=== PATIENT | female | born 1995 | race Caucasian/White ===

== ENCOUNTER 2018-08-19 12:56 | Emergency (ER) | payer OTHER ==
[~2018-08-19] VITALS: Ht 162.6 cm; Wt 84.0 kg
[2018-08-19 13:04] VITALS: BP 105/35
== END 2018-08-19 13:15 | disposition left against medical advice (07) ==
LOC: ER 12:56
DX: O26.893 Other specified pregnancy related conditions, third trimester (principal); R10.10 Upper abdominal pain, unspecified; R07.81 Pleurodynia; M54.89 Other dorsalgia; Z3A.32 32 weeks gestation of pregnancy; Z53.21 Procedure and treatment not carried out due to patient leaving prior to being seen by health care provider

== ENCOUNTER 2018-11-01 04:23 | Emergency (ER) | payer OTHER ==
[~2018-11-01] VITALS: Ht 162.6 cm; Wt 79.4 kg
[2018-11-01] MEDS ORDERED: IV NORMAL SALINE 1,000ML 1,000 ML IV SCH (04:40)
--- NOTE | 2018-11-01 04:43 | PHYS DOC ---
Past History Past Medical History: No Pertinent History (ABDULAZIZ KELLY Jr. DO) Past Surgical History: (ABDULAZIZ KELLY Jr. DO) Alcohol Use: None Drug Use: None (ABDULAZIZ KELLY Jr., DO) Adult General Chief Complaint Chief Complaint: ABDOMINAL PAIN [facility] HPI Patient is a 22-year-old female who presents with complaint of right upper quadrant abdominal pain that started last night at about 11 PM. Patient states that she had eaten some fettuccine [place] [employer] last night. Patient states that she does have a history of gallstones and has had a gallbladder attack in the past. She states that she is scheduled to see a surgeon next week to be scheduled for cholecystectomy. She rates her pain to be an 8 out of 10 right now. She does admit to nausea but is had no vomiting. (ABDULAZIZ KELLY Jr. DO) Review of Systems Review of Systems Constitutional: Denies fever or chills [] Respiratory: Denies cough or shortness of breath [] Cardiovascular: No additional information not addressed in [facility] [] GI: Complains of right upper quadrant abdominal pain with nausea. Denies vomiting or diarrhea [] Musculoskeletal: Admits to right-sided back pain [] Integument: Denies rash or skin lesions [] Neurologic: Denies headache, focal weakness or sensory changes [] All other systems were reviewed and found to be within normal limits, except as documented in this note. (ABDULAZIZ KELLY Jr., DO) Allergies Allergies Allergies Coded Allergies Type Severity Reaction Last Updated Verified No Known Drug Allergies 08/19/18 No (ABDULAZIZ KELLY Jr., DO) Physical Exam Physical Exam Constitutional: Well developed, well nourished, no acute distress, non-toxic appearance. [] HENT: Normocephalic, atraumatic, bilateral external ears normal, oropharynx moist, no oral exudates, nose normal. [] Eyes: PERRLA, EOMI, conjunctiva normal, no discharge. [] Neck: Normal range of motion, no tenderness, supple, no stridor. [] Cardiovascular:Heart rate regular rhythm, no murmur [] Lungs & Thorax: Bilateral breath sounds clear to auscultation [] Abdomen: Bowel sounds normal, soft, with right upper quadrant tenderness. [] Skin: Warm, dry, no erythema, no rash. [] Extremities: No tenderness, no cyanosis, no clubbing, ROM intact, no edema. [] Neurologic: Alert and oriented X 3, no focal deficits noted. [] (ABDULAZIZ KELLY Jr. DO) EKG EKG [] (ABDULAZIZ KELLY Jr. DO) Radiology/Procedures Radiology/Procedures [] (ABDULAZIZ KELLY Jr. DO) Radiology/Procedures TECHNIQUE: Limited ultrasound examination of the right upper quadrant of the abdomen was performed FINDINGS: Liver: The liver measures 16.3 cm in length in the right mid clavicular line. Hepatic echogenicity is normal and the margin is smooth. There is no focal abnormality of the liver. Portal and hepatic venous flow is confirmed with normal waveforms. Gallbladder/Biliary: Gallstones are seen within the gallbladder, particularly at the gallbladder neck.. Mild gallbladder wall thickening is seen measuring up to 4 mm. No pericholecystic fluid is seen.. There is no pain with direct transducer pressure over the gallbladder.The common bile duct measures 10 mm. The right kidney measures 10.8 cm in bipolar length. No focal renal lesion. Mild renal cortical thinning. No hydronephrosis. There is no free fluid in the subhepatic space. IMPRESSION: Cholelithiasis with a gallstone impacted at the gallbladder neck without evidence for movement on the decubitus images. Associated gallbladder wall thickening is seen however sonographic Beaver sign is negative and there is no pericholecystic fluid. Although these findings can be seen with acute cholecystitis, gallbladder wall thickening can also be seen with numerous other causes. (FELICIA MOODY DO) Course & Med Decision Making Course & Med Decision Making Pertinent Labs and Imaging studies reviewed. (See chart for details) [] (ABDULAZIZ KELLY Jr. DO) Course & Med Decision Making Received patient at 6 AM. Patient feeling much better with the pain medicine. Discussed the imaging findings along with the laboratory findings with her. She is feeling well and has close follow-up with her [employer] tomorrow along with consultation with the general surgeon later in the week. At this time she would like to go home. Discussed risks and benefits of this plan versus risks and benefits of transfer to [place] given the ultrasound findings. At 7:40 patient rethought the decision, initially made on concerns of her new child and [id number], and elected for admission at [facility]. Call was placed to the hospitalist. Medical decision making: Patient with cholelithiasis and what appears at this point to be an impacted gallstone on ultrasound, however given the normal white count, lack of sonographic Beaver's, and the improved pain there is no evidence of acute cholecystitis, nor pancreatitis, nor ascending cholangitis. No evidence of other significant intra-abdominal pathology. (FELICIA MOODY DO) Dragon Disclaimer Dragon Disclaimer This electronic medical record was generated, in whole or in part, using a voice recognition dictation system. (ABDULAZIZ KELLY Jr. DO) Departure Departure: Impression: Primary Impression: Cholelithiasis Disposition: 05 TRANSFER OTHER Condition: IMPROVED Referrals: PCP,UNKNOWN (PCP) Patient Instructions: Cholelithiasis Additional Instructions: Follow-up with your [employer] tomorrow morning as scheduled. Avoid fatty foods because they may trigger a gallbladder attack. Return to the ER if worsening pain or any other concerns. Scripts Hyoscyamine Sulfate (LEVSIN) 0.125 Mg Tablet 0.125 MG PO QID for abdominal pain/cramping, #30 TAB Prov: FELICIA MOODY DO 11/01/18 Problem Qualifiers Primary Impression: Cholelithiasis Cholelithiasis location: gallbladder Cholecystitis presence: without cholecystitis Biliary obstruction: without biliary obstruction Qualified Codes: K80.20 - Calculus of gallbladder without cholecystitis without obstruction ABDULAZIZ KELLY Jr. DO Nov 01, 2018 04:43 FELICIA MOODY DO Nov 01, 2018 07:11
[2018-11-01] MEDS ORDERED: ONDANSETRON PF 4 MG/2 ML VIAL. IV ONE (04:45)
[2018-11-01] MEDS ORDERED: HYDROmorphone PF 1 MG/ML DISP.SYRIN IV/SQ PRN (04:45)
[2018-11-01 05:07] LABS: BASO % 1 % (0-3); EOS # 0.1 x10^3/uL (0.0-0.7); EOS % 2 % (0-3); HEMATOCRIT 35.6 % (36.0-47.0); HEMOGLOBIN 11.5 g/dL (12.0-15.5); LYMPH # 2.3 x10^3/uL (1.0-4.8); LYMPH % 37 % (24-48); MEAN CORPUSCULAR HEMOGLOBIN 27 pg (25-35); MEAN CORPUSCULAR HGB CONC 32 g/dL (31-37); MEAN CORPUSCULAR VOLUME 83 fL (79-100); MONO # 0.4 x10^3/uL (0.0-1.1); MONO % 7 % (0-9); NEUT # 3.3 x10^3uL (1.8-7.7); NEUT % 53 % (31-73); PLATELET COUNT 217 x10^3/uL (140-400); RED BLOOD COUNT 4.27 x10^6/uL (3.50-5.40); RED CELL DISTRIBUTION WIDTH 13.8 % (11.5-14.5); WHITE BLOOD COUNT 6.2 x10^3/uL (4.0-11.0)
[2018-11-01 05:12] LABS: BACTERIA,URINE 0 /HPF (0-FEW); BILIRUBIN,URINE NEG (NEG); CLARITY,URINE CLEAR; COLOR,URINE YELLOW; GLUCOSE,URINE NEG (NEG); NITRITE,URINE NEG (NEG); RBC,URINE 0 /HPF (0-2); UROBILINOGEN,URINE 0.2 mg/dL (0.2 mg/dL); WBC,URINE OCC /HPF (0-4)
[2018-11-01 05:13] LABS: SQUAMOUS EPITHELIAL CELL,UR FEW /LPF
[2018-11-01 05:19] LABS: ALBUMIN 3.1 g/dL (3.4-5.0); ALBUMIN/GLOBULIN RATIO 0.8 (1.0-1.7); CREATININE 1.2 mg/dL (0.6-1.0); GFR 56.2; POTASSIUM 3.7 mmol/L (3.5-5.1); TOTAL BILIRUBIN 0.2 mg/dL (0.2-1.0); TOTAL PROTEIN 6.9 g/dL (6.4-8.2)
[2018-11-01] MEDS ORDERED: HYDROmorphone PF 2 MG/ML VIAL IV/SQ PRN (05:37)
[2018-11-01 06:33] VITALS: BP 111/65
--- NOTE | 2018-11-01 06:50 | RAD ---
CLINICAL HISTORY: Right upper quadrant pain, known gallstones, 1 month post COMPARISON: None available. TECHNIQUE: Limited ultrasound examination of the right upper quadrant of the abdomen was performed FINDINGS: Liver: The liver measures 16.3 cm in length in the right mid clavicular line. Hepatic echogenicity is normal and the margin is smooth. There is no focal abnormality of the liver. Portal and hepatic venous flow is confirmed with normal waveforms. Gallbladder/Biliary: Gallstones are seen within the gallbladder, particularly at the gallbladder neck.. Mild gallbladder wall thickening is seen measuring up to 4 mm. No pericholecystic fluid is seen.. There is no pain with direct transducer pressure over the gallbladder.The common bile duct measures 10 mm. The right kidney measures 10.8 cm in bipolar length. No focal renal lesion. Mild renal cortical thinning. No hydronephrosis. There is no free fluid in the subhepatic space. IMPRESSION: Cholelithiasis with a gallstone impacted at the gallbladder neck without evidence for movement on the decubitus images. Associated gallbladder wall thickening is seen however sonographic Beaver sign is negative and there is no pericholecystic fluid. Although these findings can be seen with acute cholecystitis, gallbladder wall thickening can also be seen with numerous other causes. Electronically signed by: Inocente Chand MD (11/01/2018 6:47 AM) [facility]
[2018-11-01] MEDS ORDERED: HYOS0.1264 PO (07:11)
== END 2018-11-01 08:52 | disposition short-term general hospital (02) ==
LOC: ER 04:23
DX: K80.20 Calculus of gallbladder without cholecystitis without obstruction (principal); Z98.890 Other specified postprocedural states
CPT/HCPCS: 36415; 76705; 80053; 81001; 81025; 83690; 85025; 96374; 96375; 99285; J1170; J2405; J7030

== ENCOUNTER 2020-01-16 18:03 | Emergency (ER) | payer OTHER ==
[~2020-01-16] VITALS: Ht 160 cm; Wt 86.0 kg
[~2020-01-16 18:03] MED LIST: HYOS0.1264 PO
--- NOTE | 2020-01-16 18:31 | PHYS DOC ---
Past History Past Medical History: Gallstones Past Surgical History: Alcohol Use: None Drug Use: None General Adult EDM: Chief Complaint: VAGINAL BLEEDING HPI: HPI: Patient is a 24-year-old who presents at approximately 9 weeks gestational age based upon last menstrual cycle. Patient indicates that she had recently taken a test that was positive. She states that she noticed some bleeding earlier this afternoon when she went to wipe after going to the bathroom. She states that she has never had bleeding before with her other pregnancies. She denies any abdominal cramping but does admit to some lower back discomfort. [] Review of Systems: Review of Systems: Constitutional: Denies fever or chills Respiratory: Denies cough or shortness of breath Cardiovascular: Denies chest pain or edema GI: Denies abdominal pain, nausea, vomiting or diarrhea : Positive vaginal bleeding Musculoskeletal: Positive lower back pain Integument: Denies rash Neurologic: Denies headache, focal weakness or sensory changes Heart Score: Risk Factors: Risk Factors: DM, Current or recent (<one month) smoker, HTN, HLP, family history of CAD, obesity. Risk Scores: Score 0 - 3: 2.5% MACE over next 6 weeks - Discharge Home Score 4 - 6: 20.3% MACE over next 6 weeks - Admit for Clinical Observation Score 7 - 10: 72.7% MACE over next 6 weeks - Early Invasive Strategies Allergies: Allergies: Allergies Coded Allergies Type Severity Reaction Last Updated Verified No Known Drug Allergies 08/19/18 No Physical Exam: PE: Constitutional: Well developed, well nourished, no acute distress, non-toxic appearance. [] Neck: Normal range of motion, no tenderness, supple, no stridor. [] Cardiovascular: Regular rate and rhythm [] Lungs & Thorax: Bilateral breath sounds clear to auscultation [] Abdomen: Bowel sounds normal, soft, no tenderness. [] Skin: Warm, dry, no erythema, no rash. [] Extremities: No tenderness, no cyanosis, no clubbing, ROM intact, no edema. [] Neurologic: Alert and oriented X 3, no focal deficits noted. [] EKG: EKG: [] Radiology/Procedures: Radiology/Procedures: [] Impressions: PROCEDURE: OB <14 WKS W/TV Obstetric ultrasound less than 14 weeks with transvaginal: Reason for examination: with vaginal bleeding. Transabdominal and transvaginal ultrasound examination of the pelvis was performed. Transabdominally, the uterus appears be normal in size. There is an intrauterine gestational sac with a pole present measuring 2.1 cm in greatest dimension consistent with a gestational age of 8 weeks 5 days. Cardiac activity seen with a cardiac rate of 175 bpm. The ovaries are not seen transabdominally. Transvaginally, no abnormality is seen at the cervix which is closed. Intrauterine gestation is present with pole and yolk sac identified. Gestational sac measures 4.3 x 4.1 x 2.5 cm in greatest dimension and has a normal contour. pole measures 2.11 cm in greatest dimension consistent with gestational age of 8 weeks 5 days. There does appear to be a small subchorionic hemorrhage measuring approximately 1.1 cm in length. The right ovary measures 3.3 x 2.0 x 1.8 cm in greatest dimension and shows normal vascular flow and no mass. The left ovary is not identified. No free fluid is present in the pelvis. IMPRESSION: Single viable intrauterine gestation with mean gestational age estimated at 8 weeks 5 days with estimated date of confinement of 08/23/2020. Small subchorionic bleed measuring 1.1 cm in length. Electronically signed by: Cristel Land MD (01/16/2020 8:26 PM) [id number] Course & Med Decision Making: Course & Med Decision Making Pertinent Labs and Imaging studies reviewed. (See chart for details) [] [employer] Disclaimer: Dragon Disclaimer: This electronic medical record was generated, in whole or in part, using a voice recognition dictation system. Departure Departure: Impression: Primary Impression: Vaginal bleeding affecting early Additional Impression: Subchorionic hematoma in first trimester Qualified Codes: O41.8X10 - Other specified disorders of amniotic fluid and membranes, first trimester, not applicable or unspecified; O46.8X1 - Other antepartum hemorrhage, first trimester Disposition: 01 HOME/RESIDENCE PRIOR TO ADM Condition: STABLE Referrals: PCP,NO (PCP) Patient Instructions: Subchorionic Hematoma, Vaginal Bleeding During , First Trimester Additional Instructions: Call to schedule follow up appointment with OB in the next week. Justification of Admission: Justification of Admission: Justification of Admission Dx: Comment: (Not applicable) ABDULAZIZ KELLY Jr. DO Jan 16, 2020 18:31
[2020-01-16 19:03] LABS: BASO % 1 % (0-3); EOS # 0.1 x10^3/uL (0.0-0.7); EOS % 1 % (0-3); HEMATOCRIT 36.3 % (36.0-47.0); HEMOGLOBIN 12.2 g/dL (12.0-15.5); LYMPH % 28 % (24-48); MEAN CORPUSCULAR HEMOGLOBIN 29 pg (25-35); MEAN CORPUSCULAR HGB CONC 34 g/dL (31-37); MEAN CORPUSCULAR VOLUME 86 fL (79-100); MONO # 0.4 x10^3/uL (0.0-1.1); MONO % 6 % (0-9); NEUT # 4.7 x10^3uL (1.8-7.7); NEUT % 64 % (31-73); PLATELET COUNT 232 x10^3/uL (140-400); RED BLOOD COUNT 4.23 x10^6/uL (3.50-5.40); RED CELL DISTRIBUTION WIDTH 13.7 % (11.5-14.5); WHITE BLOOD COUNT 7.2 x10^3/uL (4.0-11.0)
[2020-01-16 19:12] LABS: CREATININE 0.9 mg/dL (0.6-1.0); GFR 76.9; POTASSIUM 3.5 mmol/L (3.5-5.1)
[2020-01-16 19:20] LABS: ALBUMIN 3.2 g/dL (3.4-5.0); ALBUMIN/GLOBULIN RATIO 0.8 (1.0-1.7); TOTAL BILIRUBIN 0.2 mg/dL (0.2-1.0); TOTAL PROTEIN 7.1 g/dL (6.4-8.2)
[2020-01-16 19:30] VITALS: BP 119/67
--- NOTE | 2020-01-16 20:29 | RAD ---
Obstetric ultrasound less than 14 weeks with transvaginal: Reason for examination: with vaginal bleeding. Transabdominal and transvaginal ultrasound examination of the pelvis was performed. Transabdominally, the uterus appears be normal in size. There is an intrauterine gestational sac with a pole present measuring 2.1 cm in greatest dimension consistent with a gestational age of 8 weeks 5 days. Cardiac activity seen with a cardiac rate of 175 bpm. The ovaries are not seen transabdominally. Transvaginally, no abnormality is seen at the cervix which is closed. Intrauterine gestation is present with pole and yolk sac identified. Gestational sac measures 4.3 x 4.1 x 2.5 cm in greatest dimension and has a normal contour. pole measures 2.11 cm in greatest dimension consistent with gestational age of 8 weeks 5 days. There does appear to be a small subchorionic hemorrhage measuring approximately 1.1 cm in length. The right ovary measures 3.3 x 2.0 x 1.8 cm in greatest dimension and shows normal vascular flow and no mass. The left ovary is not identified. No free fluid is present in the pelvis. IMPRESSION: Single viable intrauterine gestation with mean gestational age estimated at 8 weeks 5 days with estimated date of confinement of 08/23/2020. Small subchorionic bleed measuring 1.1 cm in length. Electronically signed by: Cristel Land MD (01/16/2020 8:26 PM) [id number]
== END 2020-01-16 20:43 | disposition home or self-care (01) ==
LOC: ER 18:03
DX: O46.8X1 Other antepartum hemorrhage, first trimester (principal); O41.8X10 Other specified disorders of amniotic fluid and membranes, first trimester, not applicable or unspecified; Z3A.08 8 weeks gestation of pregnancy
CPT/HCPCS: 36415; 76801; 76817; 80053; 84702; 85025; 99284